=== PATIENT | female | born 1960 | race Caucasian/White ===

== ENCOUNTER 2019-11-10 15:40 | Outpatient (CLI) | payer BC, SELFPAY ==
--- NOTE | 2019-11-10 15:52 | XR_ITS ---
WS: [id number] CHEST 2 VIEWS HISTORY: Asthma. COMPARISON: 03/01/2018 Lungs: Hyperinflated lungs with no pneumonia. Normal vasculature. No pleural effusion or pneumothorax . Cardiac size: Normal. Mediastinum/Aorta: Normal mediastinum. Bones: Normal. XR/XR chest 2V* [id number] IMPRESSION: Mild chronic emphysema. No acute cardiopulmonary disease.
== END 2019-11-10 15:41 | disposition home or self-care (01) ==
LOC: RADWPI 15:50
PROVIDERS: Family Provider Internal Medicine; PCP Internal Medicine; Referring Provider Internal Medicine; Visit Provider Nurse Practitioner Family
DX: J45.998 Other asthma (principal); J43.9 Emphysema, unspecified
CPT/HCPCS: 71046

== ENCOUNTER → 2020-01-12 16:59 | Outpatient (BNVA) | payer BC, SELFPAY | PROVIDERS: Family Provider Internal Medicine; PCP Internal Medicine; Visit Provider Family Medicine | DX: R05 Cough (principal); R06.02 Shortness of breath; R06.2 Wheezing | CPT/HCPCS: 71046 ==

== ENCOUNTER 2020-01-19 12:34 | Outpatient (REF) | payer BC, SELFPAY | END 2020-01-19 12:35 | disposition home or self-care (01) | LOC: LAB 12:34 | PROVIDERS: Family Provider Internal Medicine; PCP Internal Medicine; Visit Provider Internal Medicine Critical Care Medicine | DX: Z76.89 Persons encountering health services in other specified circumstances (principal) ==

== ENCOUNTER 2020-01-19 12:38 | Outpatient (REF) | payer BC, SELFPAY ==
[2020-01-19 12:53] LABS: Basophils # 0.1 10^3/uL (0.0-0.1); Basophils % 0.7 %; Eosinophils # 0.6 10^3/uL (0.0-0.8); Eosinophils % 8.2 %; Hematocrit 43.8 % (37.0-47.0); Lymphocytes # 2.2 10^3/uL (0.8-4.8); Lymphocytes % 29.2 %; Mean Corpuscular Hemoglobin 28.2 pg (28.0-34.0); Mean Corpuscular Volume 88.1 fL (81-99); Mean Platelet Volume 11.3 fL (7.4-10.4); Monocytes # 0.5 10^3/uL (0.2-0.9); Monocytes % 6.4 %; Neutrophils # 4.1 10^3/uL (1.8-7.7); Neutrophils % 55.4 %; Nucleated Red Blood Cells % 0 %; Platelet Count 265 10^3/cmm (130-400); Red Blood Count 4.97 10^6/uL (4.1-5.3); Red Cell Distribution Width 13.6 % (12.1-15.1); White Blood Count 7.5 10^3/uL (4.0-10.0)
== END 2020-01-19 12:39 | disposition home or self-care (01) ==
LOC: LAB 12:38
PROVIDERS: Family Provider Internal Medicine; PCP Internal Medicine; Visit Provider Internal Medicine Critical Care Medicine
DX: J45.901 Unspecified asthma with (acute) exacerbation (principal)
CPT/HCPCS: 82785; 85025

== ENCOUNTER → 2020-06-28 08:32 | Outpatient (BNVA) | payer BC, SELFPAY | PROVIDERS: Family Provider Internal Medicine; PCP Internal Medicine; Referring Provider Internal Medicine; Visit Provider Anesthesiology Pain Medicine | DX: M25.572 Pain in left ankle and joints of left foot (principal); M25.571 Pain in right ankle and joints of right foot; M19.90 Unspecified osteoarthritis, unspecified site; M51.17 Intervertebral disc disorders with radiculopathy, lumbosacral region; Z79.891 Long term (current) use of opiate analgesic | CPT/HCPCS: 99204; 99213 ==

== ENCOUNTER 2021-01-22 10:27 | Emergency (ER) | payer BC, SELFPAY ==
[2021-01-22 10:53] VITALS: BP 148/91; PULSE 85; RESP 16; TEMP 36.8; O2SAT 93; BMI 38.0
[2021-01-22 11:05] VITALS: BP 140/80; PULSE 78; RESP 16; O2SAT 94
--- NOTE | 2021-01-22 11:22 | XRR_ITS ---
PROCEDURE INFORMATION: Exam: XR Right Knee Exam date and time: 01/22/2021 11:30 AM Age: 60 years old Clinical indication: Injury or trauma; Fall; Blunt trauma; Knee; Right; Additional info: Injury with pain TECHNIQUE: Imaging protocol: XR Right knee. Views: 3 views. COMPARISON: No relevant prior studies available. FINDINGS: Bones/joints: Small joint effusion, without acute bony injury. Soft tissues: No radiopaque foreign body. XR/XR knee RT 3V* [id number] IMPRESSION: Small joint effusion, without acute bony injury.
--- NOTE | 2021-01-22 11:22 | XRR_ITS ---
PROCEDURE INFORMATION: Exam: XR Right Shoulder Exam date and time: 01/22/2021 11:30 AM Age: 60 years old Clinical indication: Injury or trauma; Fall; Blunt trauma (contusions or hematomas); Shoulder; Right; Additional info: Fall injury with shoulder pain TECHNIQUE: Imaging protocol: XR Right shoulder. Views: 2 or more views. COMPARISON: No relevant prior studies available. FINDINGS: Bones/joints: Osteopenia and degenerative change. No acute bony injury or malalignment in the visualized right shoulder. Lungs: Interstitial prominence in the visualized right lung. Soft tissues: Calcific tendinitis. XR/XR shoulder RT min 2V* [id number] IMPRESSION: No acute bony injury or malalignment in the visualized right shoulder.
--- NOTE | 2021-01-22 11:22 | XRR_ITS ---
PROCEDURE INFORMATION: Exam: XR Thoracic Spine Exam date and time: 01/22/2021 11:30 AM Age: 60 years old Clinical indication: Injury or trauma; Fall; Blunt trauma (contusions or hematomas); Additional info: Fall with thoracic back pain TECHNIQUE: Imaging protocol: XR of the thoracic spine. Views: 3 views. COMPARISON: No relevant prior studies available. FINDINGS: Bones/joints: No acute bony injury or malalignment in the thoracic spine. Osteopenia and degenerative change. Soft tissues: Unremarkable. Intraperitoneal space: Surgical clips in the right upper quadrant. XR/XR thoracic spine 3V* [id number] IMPRESSION: No acute bony injury or malalignment in the thoracic spine.
--- NOTE | 2021-01-22 11:24 | ED_ITS ---
HPI - Fall General: Chief Complaint: Fall Stated Complaint: FALL Time Seen by Provider: 01/22/21 10:53 History of Present Illness: HPI Narrative: Patient is a 60-year-old female comes to the ED with fall. Fall occurred last night. Patient says she was walking up to her front door which is a 1 step. A bug flew in front of her and she swatted at the bug causing her to lose her balance she stepped back off the step and fell down. She denies hitting her head or any loss of consciousness. She has right knee pain that she rates a 10 out of 10 when she puts any weight on on it or flexes the knee. She is also complaining of having some thoracic back pain and right shoulder pain. Patient says she took a dose of her tramadol last night and it did not help at all with the pain. She has crutches at home she used to help her ambulate today. Associated symptoms-after fall: Denies abdominal pain, chest pain, headache(s), hematuria or neck pain Review of Systems Const: Denies: fever(s), chills or fatigue Eyes: Denies: change in vision or eye discomfort ENMT: Denies: throat pain, odynophagia, nasal discharge or nasal congestion Card: Denies: chest pain, palpitations, edema, swelling of feet/ankles, dyspnea on exertion or orthopnea Resp: Denies: dyspnea, productive cough or non-productive cough GI: Denies: abdominal pain, nausea, vomiting, diarrhea, constipation or hematochezia : Denies: flank pain, dysuria or hematuria Musc: Reports: back pain (Thoracic back pain) and extremity pain (Right knee pain and right shoulder pain.); Denies: neck pain or extremity swelling Skin/Breast: Denies: rash or new lesions Neuro: Denies: headache(s), numbness in extremities or weakness in extremities PFSH ED PFSH: Medical History Asthma Essential (primary) hypertension Hypothyroidism JUANITO (obstructive sleep apnea) Plantar fasciitis of right foot Surgical History H/O dilation and curettage H/O hemorrhoidectomy H/O tubal ligation History of cholecystectomy History of hysterectomy Family History Father Stroke Mother Hypertension Grandfather Hypertension Grandmother CHF (congestive heart failure) Stroke Diabetes Other Heart attack Social History Smoking and tobacco status: former smoker Quit status (tobacco): has quit using tobacco Year quit tobacco: 2012 - 0.5 PPD x 25 Years Alcohol intake: never Lives independently: Yes Household members: spouse Marital status: Current occupational status: disabled History of recent travel: No Current gender identity: Female Physical Exam Const: COMMON NORMALS: no acute distress, patient oriented x3, healthy appearing and alert GENERAL APPEARANCE: cooperative and comfortable HENMT: COMMON NORMALS: normocephalic HEAD & SCALP: normocephalic MOUTH: Normal oral and palatal mucosa present THROAT: posterior oropharynx normal and uvula midline Neck/C-Spine: COMMON NORMALS: supple GENERAL: Yes normal visual inspection Resp: COMMON NORMALS: normal respiratory effort, No retractions, No use of accessory muscles and clear to auscultation bilaterally AUSCULTATION: clear to auscultation bilaterally Cardio: COMMON NORMALS: regular rate, regular rhythm, S1 normal heart sound present, S2 normal heart sound present, No gallops present (Cardio), No clicks present (Cardio), No murmurs present (Cardio) and Peripheral pulses 2+ throughout RATE: regular rate RHYTHM: regular rhythm HEART SOUNDS: S1 normal heart sound present and S2 normal heart sound present PERIPHERAL PULSES: Peripheral pulses 2+ throughout GI: COMMON NORMALS: Normal to inspection, nondistended, normoactive bowel sounds present, Soft to palpation, non-tender and no masses PALPATION: Yes Soft to palpation : COMMON NORMALS: Yes no CVA tenderness BLADDER/KIDNEY EXAM: Yes no CVA tenderness Back/Pelvis: COMMON NORMALS: no CVA tenderness THORACIC SPINE/UPPER BACK: Yes thoracic ROM normal, Yes pain with ROM, No thoracic spinal tenderness and Yes paraspinal muscle tenderness Thoracic paraspinal muscle tenderness: left Extremity: GENERAL: Yes normal exam except as noted RIGHT UPPER EXTREMITY: Yes shoulder joint (Anterior aspect of right shoulder tender to palpation.) Right shoulder: Yes Right shoulder joint inspection exam (No visible deformity, ecchymosis or swelling.), Yes palpation, Yes Right shoulder joint ROM exam (Full range of motion) and Yes Right shoulder joint neurovascular exam (Intact) RIGHT LOWER EXTREMITY: Yes knee joint Right knee: Yes inspection (No visible ecchymosis or edema seen.), Yes palpation (Tenderness to the posterior aspect of knee.), Yes ROM (Limited flexion due to pain) and Yes neurovascular exam (Intact, pedal pulse 2+) Neuro: COMMON NORMALS: patient oriented x3 and moves all extremities SENSORIUM/ORIENTATION: Yes alert Skin: GENERAL SKIN EXAM: dry skin Course Vital Signs: Vital signs: Vital Signs Temperature 98.2 F 01/22/21 10:53 Pulse Rate 77 01/22/21 13:59 Respiratory Rate 18 01/22/21 13:59 Blood Pressure 142/79 01/22/21 13:59 Pulse Oximetry 94 01/22/21 13:59 MDM - Fall MDM Narrative: Medical decision making narrative: Patient is a 60-year-old female comes to the ED after having a fall. Her main complaint is right knee pain but she is also complained of having some mild right shoulder and thoracic back pain. Right knee exam shows shows no edema or ecchymosis seen. Patient has limited range of motion due to pain when performing flexion. Posterior knee tenderness. Right shoulder patient full range of motion and some mild tenderness to the anterior aspect of the shoulder. All extremities neurovascular tact. Patient had some muscular tenderness on the left side of thoracic back. X-ray of right knee, right shoulder and thoracic spine showed no acute fractures or findings. Patient's knee exam findings suggestive of may be a possible ligament tear. Patient was placed in a knee immobilizer and I placed a referral order to case management for patient to see Ortho. Patient diagnosed with right knee pain after injury, right shoulder pain and musculoskeletal back pain. She was discharged home with a written prescription for hydrocodone 5/325 mg tabs quantity 10 and methocarbamol. Patient told to use her crutches at home to help ambulate and wear knee immobilizer. Told patient that telehealth case manager will be contacting the next several days to set up an appoint with Ortho. Return to ED precautions given. Patient understood agree with plan. Imaging Data^: Xray Ortho: Attestation: I personally reviewed and interpreted this imaging study as follows: My impression: Right knee x-ray showed no acute fractures or findings. Right shoulder x-ray showed no acute fractures or findings. Thoracic spine x-ray showed no acute fracture seen. Pending final radiology report. Discharge Plan Discharge Patient Disposition: Home Clinical Impression: Pain of right knee after injury, Musculoskeletal back pain Pain in right shoulder Qualifiers: Chronicity: acute Qualified Code(s): M25.511 - Pain in right shoulder Condition: Stable Prescriptions: New methocarbamol 750 mg tablet 750 mg PO Q8H Qty: 20 RF: 0 No Action albuterol sulfate [Ventolin HFA] 90 mcg/actuation HFA aerosol inhaler 1 puff INHALATION Q4H PRNRF: 0 albuterol sulfate 2.5 mg /3 mL (0.083 %) solution for nebulization 2.5 mg INHALATION Q4H PRNRF: 0 ipratropium bromide 0.02 % solution 2.5 ml INHALATION Q6H PRN (Reason: shortness of breath or wheezing) Qty: 62.5 RF: 0 methylprednisolone acetate [Depo-Medrol] 80 mg/mL suspension 80 mg Tendon Sheath Inj. ONCE Qty: 1 RF: 0 bupivacaine (PF) 0.25 % (2.5 mg/mL) solution 2.5 mg Tendon Sheath Inj. ONCE Qty: 1 RF: 0 tramadol 100 mg tablet 100 mg PO TID PRN (Reason: pain) Qty: 90 RF: 5 duloxetine 30 mg capsule,delayed release(DR/EC) 30 mg PO DAILY Qty: 90 RF: 3 gabapentin 100 mg capsule 100 mg PO BID Qty: 60 RF: 0 levofloxacin 500 mg tablet 500 mg PO Q24H 7 Days Qty: 7 RF: 0 prednisone 20 mg tablet 40 mg PO DAILY 5 Days Qty: 10 RF: 0 diclofenac sodium [Voltaren Arthritis Pain] 1 % gel 2 g topical QID Qty: 100 RF: 0 citalopram 20 mg tablet 20 mg PO QDAY Qty: 90 RF: 3 montelukast [Singulair] 10 mg tablet 10 mg PO QDAY Qty: 30 RF: 5 Breo Ellipta 200-25 mcg/dose blister with device 1 inh INHALATION DAILY Qty: 60 RF: 3 levothyroxine 100 mcg capsule 100 mcg PO QDAY Qty: 90 RF: 0 losartan-hydrochlorothiazide 50-12.5 mg tablet 1.5 tab PO QDAY Qty: 90 RF: 3 Discharge Orders: Discharge ED (Routine); Ordered 01/22/21 Ordered By: Jeremiah Duke Referrals: Saurav Nevarez MD [Primary Care Provider] - Discharge Diet: Regular Discharge Activity: Use walker/crutches as instructed Patient Instructions: Knee Sprain (ED), Musculoskeletal Pain (ED), Knee Pain (ED), Opioid Safety Activity Restrictions/Additional Instructions: Follow-up with medical provider as directed. Case management will be contacting you in the next several days to set up an appoint with orthopedic doctor. Take medications as prescribed. Methocarbamol is a muscle relaxer and can cause some drowsiness so take at night before bed. Rest and apply cold pack on painful areas to help with symptoms. Wear knee immobilizer and use crutches to ambulate. Return to the ER or your medical provider if condition worsens. Please read and understand discharge instructions. If any questions, please ask. Coding Level of Care Code ED [employer] for Natty Fwd Exam Comprehensive
[2021-01-22] MEDS: HYDROcodone-acetaminophen 7.5-325 mg Tablet 1 TAB PO (11:33)
[2021-01-22 13:59] VITALS: BP 142/79; PULSE 77; RESP 18; O2SAT 94
--- NOTE | 2021-01-24 12:15 | DCPLANNER ---
enterprise architect manager had message to schedule a follow up appointment for patient with ortho. enterprise architect manager called the ortho clinic, spoke with Madhuri, gave clinic patients information. enterprise architect manager was told that patients information would be printed and reviewed. Clinic will call patient with appointment information.
--- NOTE | 2021-01-28 14:37 | DCPLANNER ---
Patient had a follow up appointment scheduled for 01.26.21 with ortho - patient did attend appointment.
== END 2021-01-22 14:00 | disposition home or self-care (01) ==
PROVIDERS: Emergency Provider Physician Assistant; PCP Internal Medicine
DX: S89.91XA Unspecified injury of right lower leg, initial encounter (principal); M54.9 Dorsalgia, unspecified; M25.511 Pain in right shoulder; W10.8XXA Fall (on) (from) other stairs and steps, initial encounter; I10 Essential (primary) hypertension; Z87.891 Personal history of nicotine dependence
CPT/HCPCS: 29530; 72072; 73030; 73562; 99283

== ENCOUNTER → 2021-03-16 08:42 | Outpatient (BNVA) | payer BC, SELFPAY | PROVIDERS: PCP Internal Medicine; Visit Provider Internal Medicine | DX: E03.9 Hypothyroidism, unspecified (principal); J45.51 Severe persistent asthma with (acute) exacerbation; J45.901 Unspecified asthma with (acute) exacerbation | CPT/HCPCS: 80061; 82306; 84443 ==

== ENCOUNTER → 2021-09-08 13:17 | Outpatient (BNVA) | payer BC, SELFPAY | PROVIDERS: PCP Internal Medicine; Visit Provider Nurse Practitioner Family | DX: Z20.822 Contact with and (suspected) exposure to COVID-19 (principal); Z20.828 Contact with and (suspected) exposure to other viral communicable diseases | CPT/HCPCS: 87635 ==

== ENCOUNTER 2021-09-17 11:55 | Emergency (ER) | payer BC, SELFPAY ==
[2021-09-17 12:08] VITALS: BP 129/89; PULSE 82; RESP 18; TEMP 36.6; O2SAT 92; BMI 37.2
--- NOTE | 2021-09-17 12:22 | XRR_ITS ---
PROCEDURE INFORMATION: Exam: XR Chest Exam date and time: 09/17/2021 12:22 PM Age: 60 years old Clinical indication: Dyspnea TECHNIQUE: Imaging protocol: XR of the chest. Views: 1 view. COMPARISON: CR XR chest 2V* [id number] 01/12/2020 5:11 PM FINDINGS: Lungs: There is a patchy infiltrate in the left base which may represent a pneumonia in the lingula. The right lung is grossly clear. Pleural spaces: Unremarkable. No pleural effusion. No pneumothorax. Heart/Mediastinum: Unremarkable. No cardiomegaly. Bones/joints: Unremarkable. XR/XR chest 1V portable [id number] IMPRESSION: Patchy infiltrate projecting in the lingula which may represent a pneumonia. Radiation Dose CTDIVOL = (mGy): DLP = (mGy-cm)
--- NOTE | 2021-09-17 12:32 | ED_ITS ---
Documented by User: JCARLOS Rick 09/17/21 16:49 HPI - COVID General: Chief Complaint: Shortness of Breath/Dyspnea Stated Complaint: SOB COUGH CONGESTION SON IS COVID + Time Seen by Provider: 09/17/21 12:23 Triage information: No fever, cough or shortness of breath . No known COVID + exposure last 14 days History of Present Illness: HPI Narrative: Patient's had exposure to 2 people in her home that are positive for Covid. Patient says that she is starting cough denies any fever chills headache sore throat body aches. She has a history of asthma. She would like to have a steroid if at all possible. Has chronic shortness of breath with her asthma. MD complaint: reported COVID exposure Prior covid testing: yes, results known Prior testing date: 09/13/21 COVID 19 common symptoms: positive non-productive cough and dyspnea; negative fever(s), chills, body aches, headache(s), throat pain, nasal congestion, nausea or vomiting COVID 19 other sytmptoms: negative chest pain Onset (ago): day(s) Severity: mild Pertinent comorbid conditions: hypertension and COPD/respiratory disease Treatment prior to arrival: breathing treatments COVID Results: Nasal/Oral Coronavirus 2019 PCR Not detected 09/08/21 13:17 09/08/21 Review of Systems Const: Denies: fever(s), chills or body aches Eyes: Denies: change in vision or blurry vision ENMT: Denies: throat pain or nasal congestion Card: Denies: chest pain or dyspnea on exertion Resp: Reports: dyspnea and non-productive cough GI: Denies: abdominal pain, nausea or vomiting Musc: Denies: extremity pain Skin/Breast: Denies: rash Neuro: Denies: headache(s) Psych: Denies: anxiety or depression Prashant/Lymph: Denies: easy bruising PFSH ED PFSH: Medical History (Updated 09/17/21 @ 12:27 by JCARLOS Rick) Asthma Essential (primary) hypertension Hypothyroidism JUANITO (obstructive sleep apnea) Plantar fasciitis of right foot Surgical History H/O dilation and curettage H/O hemorrhoidectomy H/O tubal ligation History of cholecystectomy History of hysterectomy Family History Father Stroke Mother Hypertension Grandfather Hypertension Grandmother CHF (congestive heart failure) Stroke Diabetes Other Heart attack Social History Smoking and tobacco status: former smoker Quit status (tobacco): has quit using tobacco Year quit tobacco: 2012 - 0.5 PPD x 25 Years Alcohol intake: never Lives independently: Yes Household members: spouse Marital status: Current occupational status: disabled History of recent travel: No Current gender identity: Female Physical Exam Const: COMMON NORMALS: no acute distress, average body habitus and patient oriented x3 HENMT: COMMON NORMALS: normocephalic HEAD & SCALP: normal to inspection and normocephalic FACE & SINUS: normal facial exam Eye: COMMON NORMALS: conjunctivae normal GENERAL EYE: appearance normal, both eyes and all related structures CONJUNCTIVA: Yes conjunctivae normal Neck/C-Spine: COMMON NORMALS: no JVD Chest: COMMONS NORMALS: normal inspection of the chest Resp: COMMON NORMALS: normal respiratory effort AUSCULTATION: rhonchi upper bilaterally Cardio: COMMON NORMALS: no JVD, regular rate and regular rhythm RATE: regular rate RHYTHM: regular rhythm GI: COMMON NORMALS: Normal to inspection, nondistended, normoactive bowel s ounds present Extremity: COMMON NORMALS: normal to inspection and full ROM Neuro: COMMON NORMALS: patient oriented x3 Course Vital Signs: Vital signs: Vital Signs Temperature 98 F 09/17/21 12:08 Pulse Rate 82 09/17/21 12:08 Respiratory Rate 18 09/17/21 12:08 Blood Pressure 129/89 09/17/21 12:08 Pulse Oximetry 92 09/17/21 12:08 MDM - COVID MDM Narrative: Medical decision making narrative: Patient presents desiring steroids. Patient has a grandson and who are at home that tested positive for Covid this past week. Patient herself has been tested last week and this week. Patient is tested negative. Patient denies any Covid symptoms. X-ray was performed shows patchy infiltrate projecting to the lingula which may represent a pneumonia. X-ray compared to previous looks very similar. She does have chronic shortness of breath from her asthma and she does use nebulizer on a regular basis. Patient states she is symptom-free would just like to have some medication make sure that she is okay. Patient strongly encouraged follow-up primary care provider return here if worsening symptoms. COVID Results: Nasal/Oral Coronavirus 2019 PCR Not detected 09/08/21 13:17 09/08/21 Discharge Plan Discharge Patient Disposition: Home Clinical Impression: Close exposure to 2019 novel coronavirus Condition: Stable Prescriptions: New Decadron 6 mg tablet 6 mg PO DAILY Qty: 7 RF: 0 Cipro 500 mg tablet 500 mg PO BID Qty: 14 RF: 0 No Action ipratropium-albuterol 0.5 mg-3 mg(2.5 mg base)/3 mL solution for nebulization 3 ml inhalation QID PRN (Reason: wheezing) 30 Days Qty: 360 RF: 3 prednisone 20 mg tablet See Rx Instructions PO DAILY 6 Days Qty: 19 RF: 0 ciprofloxacin HCl [Cipro] 500 mg tablet 500 mg PO Q12H 7 Days Qty: 14 RF: 0 albuterol sulfate [Ventolin HFA] 90 mcg/actuation HFA aerosol inhaler 1 puff INHALATION Q4H PRN (Reason: shortness of breath or wheezing) Qty: 6.7 RF: 0 diclofenac sodium [Voltaren Arthritis Pain] 1 % gel 2 g topical QID Qty: 100 RF: 0 montelukast [Singulair] 10 mg tablet 10 mg PO DAILY 90 Days Qty: 90 RF: 0 Trelegy Ellipta 200-62.5-25 mcg blister with device 1 inh inhalation DAILY 30 Days Qty: 60 RF: 2 citalopram 20 mg tablet 20 mg PO QDAY Qty: 90 RF: 3 tramadol 100 mg tablet 100 mg PO TID PRN (Reason: pain) Qty: 90 RF: 5 gabapentin 100 mg capsule 100 mg PO BID Qty: 60 RF: 0 losartan-hydrochlorothiazide 50-12.5 mg tablet 1.5 tab PO QDAY Qty: 90 RF: 3 levothyroxine 100 mcg capsule 100 mcg PO QDAY Qty: 30 RF: 3 benzonatate [Tessalon Perles] 100 mg capsule 100 mg PO BID PRN (Reason: cough) Qty: 20 RF: 0 Discharge Orders: Discharge ED (Routine); Ordered 09/17/21 Ordered By: Mikal Calderon Referrals: Saurav Nevarez MD [Primary Care Provider] - Discharge Diet: Usual diet Discharge Activity: Resume usual activity Patient Instructions: COVID-19: Slow the Coronavirus Spread (ED) Activity Restrictions/Additional Instructions: Follow-up with medical provider as directed. Take medications as prescribed. Return to the ER or your medical provider if condition worsens. Please read and understand discharge instructions. If any questions ask please. Coding Level of Care Code ED [employer]g Fwd Exam Comprehensive Documented by User: Tam Smart MD 09/20/21 11:09 HPI - COVID General: Chief Complaint: Shortness of Breath/Dyspnea Stated Complaint: SOB COUGH CONGESTION SON IS COVID + Time Seen by Provider: 09/17/21 12:23 COVID Results: Nasal/Oral Coronavirus 2019 PCR Not detected 09/08/21 13:17 09/08/21 [facility], [facility] ED PFSH: Medical History (Updated 09/17/21 @ 12:27 by JCARLOS Rick) Asthma Essential (primary) hypertension Hypothyroidism JUANITO (obstructive sleep apnea) Plantar fasciitis of right foot Surgical History H/O dilation and curettage H/O hemorrhoidectomy H/O tubal ligation History of cholecystectomy History of hysterectomy Family History Father Stroke Mother Hypertension Grandfather Hypertension Grandmother CHF (congestive heart failure) Stroke Diabetes Other Heart attack Social History Smoking and tobacco status: former smoker Quit status (tobacco): has quit using tobacco Year quit tobacco: 2012 - 0.5 PPD x 25 Years Alcohol intake: never Lives independently: Yes Household members: spouse Marital status: Current occupational status: disabled History of recent travel: No Current gender identity: Female Course Vital Signs: Vital signs: Vital Signs Temperature 98 F 09/17/21 12:08 Pulse Rate 82 09/17/21 12:08 Respiratory Rate 18 09/17/21 12:08 Blood Pressure 129/89 09/17/21 12:08 Pulse Oximetry 92 09/17/21 12:08 MDM - COVID COVID Results: Nasal/Oral Coronavirus 2019 PCR Not detected 09/08/21 13:17 09/08/21 Discharge Plan Discharge Patient Disposition: Home Clinical Impression: Close exposure to 2019 novel coronavirus Condition: Stable Prescriptions: New Decadron 6 mg tablet 6 mg PO DAILY Qty: 7 RF: 0 Cipro 500 mg tablet 500 mg PO BID Qty: 14 RF: 0 No Action ipratropium-albuterol 0.5 mg-3 mg(2.5 mg base)/3 mL solution for nebulization 3 ml inhalation QID PRN (Reason: wheezing) 30 Days Qty: 360 RF: 3 prednisone 20 mg tablet See Rx Instructions PO DAILY 6 Days Qty: 19 RF: 0 ciprofloxacin HCl [Cipro] 500 mg tablet 500 mg PO Q12H 7 Days Qty: 14 RF: 0 albuterol sulfate [Ventolin HFA] 90 mcg/actuation HFA aerosol inhaler 1 puff INHALATION Q4H PRN (Reason: shortness of breath or wheezing) Qty: 6.7 RF: 0 diclofenac sodium [Voltaren Arthritis Pain] 1 % gel 2 g topical QID Qty: 100 RF: 0 montelukast [Singulair] 10 mg tablet 10 mg PO DAILY 90 Days Qty: 90 RF: 0 Trelegy Ellipta 200-62.5-25 mcg blister with device 1 inh inhalation DAILY 30 Days Qty: 60 RF: 2 citalopram 20 mg tablet 20 mg PO QDAY Qty: 90 RF: 3 tramadol 100 mg tablet 100 mg PO TID PRN (Reason: pain) Qty: 90 RF: 5 gabapentin 100 mg capsule 100 mg PO BID Qty: 60 RF: 0 losartan-hydrochlorothiazide 50-12.5 mg tablet 1.5 tab PO QDAY Qty: 90 RF: 3 levothyroxine 100 mcg capsule 100 mcg PO QDAY Qty: 30 RF: 3 benzonatate [Tessalon Perles] 100 mg capsule 100 mg PO BID PRN (Reason: cough) Qty: 20 RF: 0 Discharge Orders: Discharge ED (Routine); Ordered 09/17/21 Ordered By: Mikal Calderon Referrals: Saurav Nevarez MD [Primary Care Provider] - Discharge Diet: Usual diet Discharge Activity: Resume usual activity Patient Instructions: COVID-19: Slow the Coronavirus Spread (ED) Activity Restrictions/Additional Instructions: Follow-up with medical provider as directed. Take medications as prescribed. Return to the ER or your medical provider if condition worsens. Please read and understand discharge instructions. If any questions ask please. Coding Level of Care Code ED Predatory Hunter for Natty Fwd Exam Comprehensive
== END 2021-09-17 12:46 | disposition home or self-care (01) ==
PROVIDERS: Emergency Provider Nurse Practitioner Family; PCP Internal Medicine
DX: Z20.822 Contact with and (suspected) exposure to COVID-19 (principal); I10 Essential (primary) hypertension; J45.909 Unspecified asthma, uncomplicated; Z87.891 Personal history of nicotine dependence
CPT/HCPCS: 71045; 99282

== ENCOUNTER → 2022-02-06 16:06 | Outpatient (BNVA) | payer BC, SELFPAY | PROVIDERS: PCP Internal Medicine; Visit Provider Internal Medicine | DX: R53.83 Other fatigue (principal); J45.909 Unspecified asthma, uncomplicated; R09.82 Postnasal drip; E03.9 Hypothyroidism, unspecified | CPT/HCPCS: 80053; 82607; 82746; 83550; 84443; 85025 ==

== ENCOUNTER → 2022-07-17 11:45 | Outpatient (BNVA) | payer BC, SELFPAY | PROVIDERS: PCP Internal Medicine; Visit Provider Registered Nurse Neonatal Intensive Care | DX: Z20.822 Contact with and (suspected) exposure to COVID-19 (principal); R50.9 Fever, unspecified | CPT/HCPCS: 87400; 87426 ==

== ENCOUNTER → 2022-11-01 09:09 | Outpatient (BNVA) | payer BC, SELFPAY | PROVIDERS: PCP Internal Medicine; Visit Provider Nurse Practitioner Family | DX: M25.569 Pain in unspecified knee (principal) | CPT/HCPCS: 73560; 73565 ==

== ENCOUNTER → 2023-01-18 12:06 | Outpatient (BNVA) | payer BC, SELFPAY | PROVIDERS: PCP Family Medicine; Visit Provider Family Medicine | DX: J45.51 Severe persistent asthma with (acute) exacerbation (principal); Z68.41 Body mass index [BMI] 40.0-44.9, adult; I10 Essential (primary) hypertension | CPT/HCPCS: 80053; 80061; 84439; 84443; 85025 ==

== ENCOUNTER 2023-01-25 11:26 | Outpatient (CLI) | payer BC, SELFPAY ==
--- NOTE | 2023-01-25 11:33 | MM_ITS ---
WS: [id number] VIEWS: MLO and CC views both breasts. 3D digital tomosynthesis is also included in this exam. Comparison made with prior exam of 07/08/2009, 03/26/2015.. Findings: 1.5 cm partially obscured nodular density noted in the lateral left breast at about mid depth level. This is at the approximate 3:00 position. This lesion contains both course and new pleomorphic microc alcifications. No new finding in the right breast. There are stable appearing nodular densities in darío th breasts. Magnification compression spot images and regional ultrasound of the lateral left breast as well as a 90 degrees lateral view of the left breast would be recommended for further workup.Scatt ered fibroglandular densities in both breasts. MM/[place] [id number] Impression: BI-RADS: 0-Incomplete: Need additional imaging evaluation FOLLOW-UP: See Report This mammogram was also analyzed by the Computer Aided Detection System R2 Imag e Layout Man.
== END 2023-01-25 11:27 | disposition home or self-care (01) ==
LOC: RAD 11:28
PROVIDERS: PCP Family Medicine; Visit Provider Family Medicine
DX: Z12.31 Encounter for screening mammogram for malignant neoplasm of breast (principal)
CPT/HCPCS: 77063; 77067

== ENCOUNTER 2023-03-14 09:19 | Outpatient (CLI) | payer BC, SELFPAY ==
--- NOTE | 2023-03-14 09:30 | MM_ITS ---
WS: [id number] Left breast diagnostic 3D tomosynthesis digital mammogram, 03/14/2023 Clinical Data: N63.20 - Unspecified lump in the left breast, unspecified... Comparison: 01/25/2023, 03/22/2015, 9 08/17/2009. Findings: Magnification films in the CC and MLO projection were obtained. An additional medial lateral film was obtained. At the 3:00 position in the left breast there is an irregular mass with greatest dimension of 2.0 cm with associated pleomorphic calcifications. The border is ill-defined. No other lesions are seen. The re is a mole marker on the left breast. There are lymph nodes in the left axilla MM/[place] [id number] Impression: 1. Irregular 2 cm mass in lateral aspect of the left breast at the 3:00 positio n with associated pleomorphic calcifications. 2. Left breast ultrasound. BIRADS: 4-Suspicious Finding-Biopsy Should Be Considered FOLLOW UP: See Report The CAD checker loader was used.
--- NOTE | 2023-03-14 09:31 | US_ITS ---
WS: [id number] Left breast ultrasound, 03/14/2023 Clinical Data: ABNORMAL MAMMO Comparison: Mammogram, 03/14/2023 Findings: At the 3:00 position 2 cm from the nipple there is an irregular lesion. The borders are poorly define d. There are internal echoes and calcifications. The lesion measures 0.66 x 1.34 x 1.40 cm. US/US breast LT limited* [id number] Impression: 1. Irregular lesion at the 3:00 position in the left breast 2 cm from the nippl e. 2. Recommend left breast biopsy. BIRADS: 4-Suspicious Finding-Biopsy Should Be Considered FOLLOW UP: See Report
== END 2023-03-14 09:20 | disposition home or self-care (01) ==
LOC: RAD 09:22
PROVIDERS: PCP Family Medicine; Visit Provider Family Medicine
DX: N63.25 Unspecified lump in the left breast, overlapping quadrants (principal)
CPT/HCPCS: 76642; 77061; G0279

== ENCOUNTER 2023-03-21 11:02 | Outpatient (CLI) | payer BC, SELFPAY ==
--- NOTE | 2023-03-21 11:45 | US_ITS ---
WS: [id number] ULTRASOUND-GUIDED LEFT BREAST BIOPSY HISTORY: Left breast mass COMPARISON: 03/14/2023 and 01/25/2023 Procedure, risks and complications are explained to the patient. Medications are reviewed. Consent is obtained. The mass in the LEFT breast is localized with ultrasound. Mass localizes to 3:00, 2 cm from the nippl e. Skin is cleansed with ChloraPrep and anesthetized with 1% buffered lidocaine. Small dermatome is m paolo. Under sterile conditions mass is biopsied with a 14-gauge Achieve needle. Multiple core biopsies are performed. Material placed in formalin and sent to pathology for review. No complications encoun tered. Breast tissue marker (Bard ultrasound enhanced ribbon): Single. Patient left the radiology suite with no complications. Patient is instructed to return [place] [facility] [place] [facility] with any concerns. US/[place] [id number] IMPRESSION: 1. Uncomplicated core needle biopsy LEFT breast mass at 3:00. PATHOLOGY: Invasive ductal carcinoma, moderately differentiated. Microcalcifica tions identified within the DCIS and invasive carcinoma. Breast profile is pend ing and will be reported separately. RECOMMENDATION: Follow-up with oncology and breast surgery.
[2023-03-27 14:11] LABS: Breast Profile ER,PR,HER2,Ki-6 See Report
== END 2023-03-21 11:03 | disposition home or self-care (01) ==
PROVIDERS: PCP Family Medicine; Visit Provider Family Medicine
DX: C50.812 Malignant neoplasm of overlapping sites of left female breast (principal)
CPT/HCPCS: 19083; 88305; 88361; 88374

== ENCOUNTER 2023-03-29 14:50 | Oncology outpatient (recurring) (ONCR) | payer BC, SELFPAY | END 2023-04-27 23:59 | disposition home or self-care (01) | LOC: ONCMED 14:53 | PROVIDERS: PCP Family Medicine; Visit Provider Internal Medicine Medical Oncology | DX: Z53.9 Procedure and treatment not carried out, unspecified reason (principal) ==

== ENCOUNTER 2023-06-27 12:51 | Oncology outpatient (recurring) (ONCR) | payer BC, SELFPAY ==
[2023-06-20 10:34] VITALS: BP 148/96; PULSE 85; RESP 18; TEMP 36.6; O2SAT 95
== END 2023-06-28 23:59 | disposition home or self-care (01) ==
PROVIDERS: PCP Family Medicine; Visit Provider Internal Medicine Medical Oncology
DX: Z53.9 Procedure and treatment not carried out, unspecified reason (principal)
CPT/HCPCS: 36415

== ENCOUNTER 2023-07-16 13:58 | Oncology outpatient (recurring) (ONCR) | payer BC, SELFPAY ==
[2023-07-16 14:07] VITALS: BP 128/86; PULSE 93; RESP 16; TEMP 36.8; O2SAT 96
[2023-07-16 14:22] LABS: Basophils % 0.3 %; Eosinophils # 0.6 10^3/uL (0.0-0.8); Eosinophils % 6.9 %; Hematocrit 44.9 % (36-47); Lymphocytes # 2.5 10^3/uL (0.8-4.8); Lymphocytes % 27.6 %; Mean Corpuscular HGB Conc 31.4 g/dL (30-55); Mean Corpuscular Hemoglobin 27.1 pg (27-33); Mean Corpuscular Volume 86.2 fl (85-98); Mean Platelet Volume 10.4 fL (7.4-10.4); Monocytes # 0.5 10^3/uL (0.2-0.9); Monocytes % 6.1 %; Neutrophils # 5.23 10^3/uL (1.8-7.7); Neutrophils % 58.8 %; Nucleated Red Blood Cells % 0 %; Platelet Count 282 10^3/cmm (157-399); Red Blood Count 5.21 10^6/uL (3.85-5.65); Red Cell Distribution Width 13.5 % (12.1-15.1)
--- NOTE | 2023-07-16 14:28 | XR_ITS ---
WS: [id number] DEXA (DUAL ENERGY X-RAY ABSORPTIOMETRY) Bone mineral density was performed using a [employer] machine. HISTORY: BREAST CA/AI USE COMPARISON: None available. Lumbar spine BMD (L1-L4): 0.9 T score: -2.5 Z score: -2.1 Total hip BMD: Left: 0.8. T score: -1.4 Z score: -1.1 Right: 0.8. T score: -1.5 Z score: 0.1 10 year probability of a major osteoporotic fracture is 48.2%. IMPRESSION: OSTEOPOROSIS based upon the WHO classification for females.
[2023-07-16 14:40] LABS: Alanine Aminotransferase 22 U/L (0-33); Albumin Level 3.7 g/dL (3.5-5.2); Alkaline Phosphatase 51 U/L (35-105); Anion Gap 10.2 (5-19); Aspartate Amino Transferase 17 U/L (0-32); Blood Urea Nitrogen 10 mg/dL (8-23); Calcium 9.3 mg/dL (8.5-10.5); Carbon Dioxide 32 mmol/L (22-29); Chloride 99 mmol/L (98-107); Globulin 3.6 g/dL (1.3-4.6); Glomerular Filtration Rate 124.6 mL/min (90-130); Glucose 121 mg/dL (65-115); Osmolality Calculated 286 mOsm/kg (285-295); Potassium 3.2 mmol/L (3.5-5.1); Sodium 138 mmol/L (136-145); Total Bilirubin 0.4 mg/dL (0.15-1.2); Total Protein 7.3 g/dL (6.6-8.7)
[2023-07-16 14:56] LABS: 25 Hydroxy Vitamin D 73 ng/mL (30-100)
== END 2023-07-28 23:59 | disposition home or self-care (01) ==
PROVIDERS: Internal Medicine Medical Oncology; PCP Family Medicine; Visit Provider Internal Medicine Medical Oncology
DX: C50.812 Malignant neoplasm of overlapping sites of left female breast (principal); Z79.811 Long term (current) use of aromatase inhibitors; Z78.0 Asymptomatic menopausal state
CPT/HCPCS: 36415; 77080; 80053; 82306; 85025

== ENCOUNTER → 2023-10-12 11:59 | Outpatient (BNVA) | payer BC, SELFPAY | PROVIDERS: PCP Family Medicine; Referring Provider Internal Medicine Medical Oncology; Visit Provider Internal Medicine | DX: E03.9 Hypothyroidism, unspecified (principal); R53.83 Other fatigue; E04.9 Nontoxic goiter, unspecified; E66.9 Obesity, unspecified; R63.5 Abnormal weight gain | CPT/HCPCS: 36415; 84305; 84439; 84443; 86376; 86800 ==

== ENCOUNTER 2023-10-19 14:19 | Outpatient (CLI) | payer BC, SELFPAY ==
--- NOTE | 2023-10-19 14:30 | US_ITS ---
WS: [id number] THYROID ULTRASOUND HISTORY: nodules COMPARISON: None available. Right lobe: 1.3 cm x 1.3 cm x 4.4 cm (w x ap x l). Volume: 3.8 cm3. Small echogenic thyroid. There are no discrete nodules. The entire thyroid lobe is echogenic. No incr eased vascularity. Left lobe: 1.3 cm x 1.1 cm x 2.6 cm (w x ap x l). Volume: 1.9 cm3. Small echogenic thyroid. No discrete nodules. The entire lobe is echogenic and small caliber. No nodu les. Isthmus: 0.3 cm. IMPRESSION: Atrophied, echogenic thyroid. No mass.
== END 2023-10-19 14:20 | disposition home or self-care (01) ==
LOC: RAD 14:19
PROVIDERS: PCP Family Medicine; Visit Provider Internal Medicine
DX: E03.9 Hypothyroidism, unspecified (principal); E04.9 Nontoxic goiter, unspecified
CPT/HCPCS: 76536

== ENCOUNTER 2023-10-31 16:50 | Outpatient (CLI) | payer BC, SELFPAY ==
[2023-10-31 18:28] LABS: Urine Creatinine 67 mg/dL (28-217)
[2023-10-31 19:17] LABS: Total Volume Urine 2200 ml
[2023-11-06 16:44] LABS: Free Cortisol Urine 27.2 mcg/24 h (4.0-50.0); Total Urine 2200 mL; Urine Creatinine 1.49 g/24 h (0.50-2.15)
== END 2023-10-31 16:51 | disposition home or self-care (01) ==
PROVIDERS: PCP Family Medicine; Visit Provider Internal Medicine
DX: E03.9 Hypothyroidism, unspecified (principal); R53.83 Other fatigue
CPT/HCPCS: 82530; 82570

== ENCOUNTER → 2023-12-17 09:39 | Outpatient (BNVA) | payer BC, SELFPAY | PROVIDERS: PCP Family Medicine; Visit Provider Internal Medicine | DX: E03.9 Hypothyroidism, unspecified | CPT/HCPCS: 36415; 84439; 84443 ==

== ENCOUNTER 2024-02-25 12:42 | Outpatient (CLI) | payer BC, SELFPAY ==
[2024-02-25 13:58] LABS: Thyroid Stimulating Hormone 0.88 uIU/mL (0.27-4.20)
[2024-02-25 14:40] LABS: Free T4 Free Thyroxine 1.24 ng/dL (0.82-1.77)
== END 2024-02-25 12:43 | disposition home or self-care (01) ==
LOC: LAB 12:45
PROVIDERS: PCP Family Medicine; Visit Provider Internal Medicine
DX: E03.9 Hypothyroidism, unspecified (principal)
CPT/HCPCS: 36415; 84439; 84443

== ENCOUNTER 2024-05-23 10:10 | Outpatient (CLI) | payer BC, SELFPAY ==
[2024-05-23 11:00] LABS: Free T4 Free Thyroxine 1.33 ng/dL (0.82-1.77); Thyroid Stimulating Hormone 1.55 uIU/mL (0.27-4.20)
== END 2024-05-23 10:11 | disposition home or self-care (01) ==
LOC: LAB 10:11
PROVIDERS: PCP Family Medicine; Visit Provider Internal Medicine
DX: E03.9 Hypothyroidism, unspecified (principal); E03.8 Other specified hypothyroidism; E06.3 Autoimmune thyroiditis
CPT/HCPCS: 36415; 84439; 84443

== ENCOUNTER 2024-09-04 09:02 | Emergency (ER) | payer BC, SELFPAY ==
[2024-09-04 09:16] VITALS: BP 129/86; PULSE 86; TEMP 36.8; O2SAT 94; BMI 35.4
--- NOTE | 2024-09-04 09:34 | XR_ITS ---
WS: [id number] XR shoulder RT min 2V* [id number] REASON FOR EXAM: pain FINDINGS: No fracture or focal bone lesion. Moderate narrowing of the acromioclavicular joint with significant marginal osteophytosis. Moderate downward slant of the acromial process. The glenohumeral joint space is not clearly demonstrated in this examination but likely somewhat narr owed. There is mild subchondral sclerosis of the acetabulum There is mild sclerosis and cystic change in the greater tuberosity of the humerus. There appears to be some narrowing of the humeral acromial interval. There is been previous left axillary lymph node dissection. There is no evidence of bony metastatic d isease. XR/XR shoulder RT min 2V* [id number] IMPRESSION: Moderate to significant osteoarthritis of the acromioclavicular joint. Presumed mild osteoarthritis of the glenohumeral joint. Additional findings above suggest the possibility of significant rotator cuff t endinosis.
--- NOTE | 2024-09-04 09:54 | PC.PHAR ---
pt states takes thyroid medication in early am and takes all other am meds at mid morning around 11 am.
--- NOTE | 2024-09-04 10:08 | W.ED.EXTPRO ---
HPI - Extremity Problem General: Chief complaint: Extremity Problem,Nontraumatic Stated complaint: L shoulder Pain Time Seen by Provider: 09/04/24 09:30 History of Present Illness: 63-year-old female presents emergency room with complaint of left shoulder pain has been going on for the last several days. She had extended her arm to manipulate a large plug and on the washer took a lot of pressure she strained the shoulder in the course of this that is what seemed to have precipitated her symptoms she has been to her primary care doctor they gave her prescription for muscle relaxer steroid she also got an injection for pain I suspect it may have been ketorolac she said it did help for about 3 hours. Today she is cradling her arm splinting against her chest unable to AB duct or extend due to pain. In the past she had a similar episode and required a steroid injection with orthopedics. She has no chest pain no shortness of breath no direct blow or trauma no previous surgery to that shoulder Associated symptoms: Deny chest pain, fever(s) or rash Related Data Home Medications Medication Instructions Recorded Confirmed celecoxib 200 mg capsule (Celebrex) 200 mg PO BID PRN Pain 03/29/23 09/04/24 alprazolam 0.25 mg tablet (Xanax) 0.25 mg PO BEDTIME 09/04/24 09/04/24 citalopram 20 mg tablet 20 mg PO DAILY 09/04/24 09/04/24 gabapentin 100 mg capsule 100 mg PO BEDTIME pain 09/04/24 09/04/24 levothyroxine 100 mcg tablet 100 mcg PO QAM 09/04/24 09/04/24 Previous Rx's Medication Instructions Recorded albuterol sulfate 90 mcg/actuation 1 puff inhalation Q4H PRN 03/09/23 aerosol inhaler (Ventolin HFA) shortness of breath or wheezing #8.5 grams losartan 50 mg-hydrochlorothiazide 1 tab PO QDAY #90 tabs 06/23/24 12.5 mg tablet liraglutide 0.6 mg/0.1 mL (18 mg/3 See Rx Instructions .Route 09/01/24 mL) subcutaneous pen injector .COMPLEX #9 mL (Victoza 3-King) cyclobenzaprine 10 mg tablet 10 mg PO TID PRN muscle spasm #30 09/02/24 tabs prednisone 20 mg tablet 20 mg PO TID #15 tabs 09/04/24 tramadol 50 mg tablet 50 mg PO Q6H PRN pain #14 tabs 09/04/24 Allergies Allergy/AdvReac Type Severity Reaction Status Date / Time contact metal agent Allergy Severe ALGY-Rash Verified 09/04/24 09:20 meperidine [From Demerol] Allergy Severe ALGY-Anaphy Verified 09/04/24 09:20 laxis methylprednisolone Allergy Intermediate ADR/ALGY-Pa Verified 09/04/24 09:20 [From Medrol] lpitations hydrocodone Allergy Unknown Verified 09/04/24 09:20 amoxicillin [From Augmentin] AdvReac Severe ADR-Vomitin Verified 09/04/24 09:20 g azithromycin AdvReac Severe ADR-Vomitin Verified 09/04/24 09:20 g clavulanic acid AdvReac Severe ADR-Vomitin Verified 09/04/24 09:20 [From Augmentin] g paroxetine [From Paxil] AdvReac Severe ADR-Anxiety Verified 09/04/24 09:20 Review of Systems Const: Denies: fever(s) or chills Card: Denies: chest pain Resp: Denies: dyspnea GI: Denies: abdominal pain : Denies: dysuria, urinary frequency or urinary urgency Musc: Reports: joint pain; Denies: neck pain or back pain Skin/Breast: Denies: rash PFSH ED PFSH: Medical History Breast cancer Garcia's palsy Bronchitis 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 Pain management contract signed Osteoarthritis Chronic foot pain Plantar fasciitis of right foot Right hip pain Severe persistent asthma with exacerbation Asthma Essential (primary) hypertension Hypothyroidism Surgical History History of bilateral mastectomy (05/08/23) Total mastectomy with axillary sentinel lymph node biopsy bilaterally History of hysterectomy with bilateral oophorectomy History of cholecystectomy H/O dilation and curettage H/O tubal ligation H/O hemorrhoidectomy Family History Father Stroke Mother Hypertension Cancer stomach and colon Grandfather Hypertension Grandmother Congestive heart failure (CHF) Stroke Diabetes Other Heart attack Hyperlipidemia Lung disease Denies family history of CAD (coronary artery disease) Clotting disorder Dementia Psychiatric illness Chronic kidney disease (CKD) Anesthesia complication Bleeding disorder Social History Smoking and tobacco/nicotine status: never used tobacco/nicotine Quit status (tobacco/nicotine): has quit using Year quit tobacco: 2012 - 0.5 PPD x 25 Years Alcohol intake: never Substance/Drug Use: never Lives independently: Yes Household members: spouse Marital status: Current occupational status: disabled Do you think of yourself as: Straight/Heterosexual Current gender identity: Female Physical Exam Const: COMMON NORMALS: no acute distress GENERAL APPEARANCE: cooperative and comfortable ORIENTATION/CONSCIOUSNESS: Yes awake HENMT: COMMON NORMALS: normocephalic, atraumatic and hearing grossly normal bilaterally HEAD & SCALP: normocephalic and atraumatic Resp: COMMON NORMALS: normal respiratory effort, No retractions, No use of accessory muscles and clear to auscultation bilaterally AUSCULTATION: clear to auscultation bilaterally Cardio: COMMON NORMALS: regular rate, regular rhythm and No murmurs present (Cardio) RATE: regular rate RHYTHM: regular rhythm Extremity: COMMON NORMALS: normal to inspection, capillary refill normal, no clubbing, cyanosis or edema, no calf tenderness and no pedal edema OTHER: Difficult to examine the right shoulder due to tenderness she has significant pain with any attempted internal/external rotation abduction or flexion. Neurovascularly the right arm is intact. Skin: COMMON NORMALS: no rashes or lesions noted GENERAL SKIN EXAM: no rashes or lesions noted Course Vital Signs: Vital signs: Vital Signs Temperature 98.3 F 09/04/24 09:16 Pulse Rate 75 09/04/24 11:01 Blood Pressure 115/70 09/04/24 11:01 Pulse Oximetry 95 09/04/24 11:01 Oxygen Delivery Me thod Room Air 09/04/24 11:00 MDM - Extremity (Nontraumatic) Medical Decision Making No acute findings on x-ray of the shoulder. At this point will discharge home with pain medications and steroids refer to orthopedics keep arm in the sling until she follows up in Ortho Medical Records I reviewed the patient's medical records. Lab Data I reviewed the patient's lab results. Radiology Impressions Shoulder X-Ray 09/04/24 09:34 IMPRESSION: Moderate to significant osteoarthritis of the acromioclavicular joint. Presumed mild osteoarthritis of the glenohumeral joint. Additional findings above suggest the possibility of significant rotator cuff tendinosis. All radiology interpretation(s) finalized by discharge Discharge Plan Discharge Patient Disposition: Home Clinical Impression: Bursitis of right shoulder Condition: Stable Prescriptions: New prednisone 20 mg tablet 20 mg PO TID Qty: 15 0RF Rx Instructions: 1 p.o. 3 times daily x3 days, 1 p.o. twice daily x2 days, 1 p.o. daily x2 days tramadol 50 mg tablet 50 mg PO Q6H PRN (Reason: pain) Qty: 14 0RF No Action celecoxib [Celebrex] 200 mg capsule 200 mg PO BID PRN (Reason: Pain) cyclobenzaprine 10 mg tablet 10 mg PO TID PRN (Reason: muscle spasm) Qty: 30 1RF albuterol sulfate [Ventolin HFA] 90 mcg/actuation HFA aerosol inhaler 1 puff INHALATION Q4H PRN (Reason: shortness of breath or wheezing) Qty: 8.5 5RF losartan-hydrochlorothiazide 50-12.5 mg tablet 1 tab PO QDAY Qty: 90 0RF Victoza 3-King 0.6 mg/0.1 mL (18 mg/3 mL) pen injector See Rx Instructions .ROUTE .COMPLEX Qty: 9 1RF Dose Instruction: inject 0.6mg SUBCUTANEOUSLY ONCE daily FOR SEVEN DAYS THEN 1.2mg daily *do not exceed 1.8mg PER day* Rx Instructions: inject 0.6mg SUBCUTANEOUSLY ONCE daily FOR SEVEN DAYS THEN 1.2mg daily *do not exceed 1.8mg PER day* levothyroxine 100 mcg tablet 100 mcg PO QAM alprazolam [Xanax] 0.25 mg tablet 0.25 mg PO BEDTIME citalopram 20 mg tablet 20 mg PO DAILY gabapentin 100 mg capsule 100 mg PO BEDTIME Discharge Orders: Discharge ED (Routine); Ordered 09/04/24 Ordered By: Rakesh Luu Referrals: Sanchez Brody MD [Primary Care Provider] - Discharge Diet: Usual diet Discharge Activity: Limit activity as instructed Patient Instructions: Opioid Safety, Pain Management Activity Restrictions/Additional Instructions: Thank you for choosing [facility] for your healthcare needs today. It is very important that you follow up as instructed or that you return to the Emergency Department should you have concerns or if your condition changes or worsens in any way. Case management make arrangements for you to follow-up for further evaluation and treatment options for your shoulder at the orthopedic clinic. Coding Level of Care Code ED Accounts Payable Analyst for [employer]
--- NOTE | 2024-09-04 10:57 | DCPLANNER ---
messaged ortho for er f/u
[2024-09-04 11:00] VITALS: BP 115/70; PULSE 75; O2SAT 95
[2024-09-04 11:01] VITALS: BP 115/70; PULSE 75; O2SAT 95
--- NOTE | 2024-09-04 11:01 | PC.NURSE ---
This nurse to bedside to DC pt. Pt educated on discharge instructions and medications. Pt wanted nurse to ask MD to change tramadol to hydrocodone, MD said no, pt told. Pt request to talk to MD. MD said he could not as he had other pt to see. Pt informed that MD was not able to come back and discuss dc again. Pt states that she was going to report MD. Pt ambulated out of ER in stable condition with all belongings.
== END 2024-09-04 11:01 | disposition home or self-care (01) ==
PROVIDERS: Emergency Provider Family Medicine; PCP Family Medicine
DX: M75.51 Bursitis of right shoulder (principal); Z87.891 Personal history of nicotine dependence; I10 Essential (primary) hypertension
CPT/HCPCS: 73030; 99283

== ENCOUNTER → 2024-12-01 14:16 | Outpatient (BNVA) | payer BC, SELFPAY | PROVIDERS: PCP Family Medicine; Visit Provider Internal Medicine | DX: E03.9 Hypothyroidism, unspecified (principal); E04.9 Nontoxic goiter, unspecified; E66.9 Obesity, unspecified; E03.8 Other specified hypothyroidism; E06.3 Autoimmune thyroiditis | CPT/HCPCS: 36415; 84439; 84443 ==

== ENCOUNTER → 2024-12-24 15:38 | Outpatient (BNVA) | payer BC, SELFPAY | PROVIDERS: PCP Family Medicine; Visit Provider Family Medicine | DX: M19.90 Unspecified osteoarthritis, unspecified site (principal); I10 Essential (primary) hypertension; E66.9 Obesity, unspecified | CPT/HCPCS: 80053; 80061; 83036; 85025 ==

== ENCOUNTER 2025-05-18 16:05 | Oncology outpatient (recurring) (ONCR) | payer MEDICARE, BC, SELFPAY ==
[2025-05-13 14:06] LABS: Hematocrit 42.9 % (36-47); Hemoglobin 14.10 g/dL (11.27-16.99); Mean Corpuscular HGB Conc 32.9 g/dL (30-55); Mean Corpuscular Hemoglobin 27.9 pg (27-33); Mean Corpuscular Volume 84.8 fl (85-98); Nucleated Red Blood Cells % 0 %; Platelet Count 247 10^3/cmm (157-399); Red Blood Count 5.06 10^6/uL (3.85-5.65); White Blood Count 6.89 10^3/uL (3.29-11.43)
[2025-05-13 14:45] LABS: Alanine Aminotransferase 22 U/L (0-33); Albumin Level 4.0 g/dL (3.5-5.2); Alkaline Phosphatase 59 U/L (35-105); Anion Gap 17.0 (5-19); Aspartate Amino Transferase 32 U/L (0-32); Blood Urea Nitrogen 9 mg/dL (8-23); Calcium 9.6 mg/dL (8.5-10.5); Carbon Dioxide 25 mmol/L (22-29); Chloride 100 mmol/L (98-107); Creatinine Clr Calc Pharmacy 73.6321; Globulin 3.7 g/dL (1.3-4.6); Glucose 103 mg/dL (65-115); Osmolality Calculated 287 mOsm/kg (285-295); Potassium 3.0 mmol/L (3.5-5.1); Sodium 139 mmol/L (136-145); Total Protein 7.7 g/dL (6.6-8.7)
--- NOTE | 2025-05-18 16:00 | MR_ITS ---
WS: [id number] EXAMINATION: MR hip RT wo/w con [id number] ORDER DATE: 05/18/2025 4:30 PM COMPARISON: None. HISTORY: right hip pain TECHNIQUE: Coronal STIR of the Pelvis. Coronal proton density, coronal T1, axial T2 fat sat, axial T1, sagittal T2 fat sat, and sagittal T1 performed of the hip. After contrast, axial T1 fat sat, coronal T1 fat sat, and sagittal T1 fat sat were performed. FINDINGS: Moderate degenerative arthritis RIGHT hip. Normal bone marrow signal. No significant joint effusion. No enhancing lesions in the RIGHT femoral head or neck. Normal bone marrow signal in the bony pelvis and sacrum. Normal bone marrow signal in the LEFT hip. No RIGHT inguinal lymphadenopathy. Small amount of fluid and edema about the RIGHT greater trochanter compatible with trochanteric bursitis. Visualized sacrum and coccyx appear normal. No enhancing lesions. MR/MR hip RT wo/w con [id number] IMPRESSION: 1. Trochanteric bursitis RIGHT hip. 2. No other acute findings.
[2025-05-18] MEDS: gadobenate dimeglumine 20 mL vial IV (16:45)
== END 2025-05-28 23:59 | disposition home or self-care (01) ==
LOC: ONCMED 16:05 → RAD 05-19 00:01 → ONCMED 05-26 12:46
PROVIDERS: PCP Family Medicine; Visit Provider Internal Medicine
DX: C50.812 Malignant neoplasm of overlapping sites of left female breast; M70.61 Trochanteric bursitis, right hip; M16.11 Unilateral primary osteoarthritis, right hip; Z53.9 Procedure and treatment not carried out, unspecified reason
CPT/HCPCS: 36415; 73723; 80053; 82306; 85025; 99213; A9577

== ENCOUNTER 2025-06-03 12:31 | Oncology outpatient (recurring) (ONCR) | payer MEDICARE, BC, SELFPAY ==
[2025-06-03 12:59] LABS: Hematocrit 43.5 % (36-47); Hemoglobin 14.00 g/dL (11.27-16.99); Mean Corpuscular HGB Conc 32.2 g/dL (30-55); Mean Corpuscular Hemoglobin 27.3 pg (27-33); Mean Corpuscular Volume 85.0 fl (85-98); Nucleated Red Blood Cells % 0 %; Platelet Count 262 10^3/cmm (157-399); Red Blood Count 5.12 10^6/uL (3.85-5.65); White Blood Count 7.22 10^3/uL (3.29-11.43)
[2025-06-03 13:26] LABS: Alanine Aminotransferase 19 U/L (0-33); Albumin Level 4.0 g/dL (3.5-5.2); Alkaline Phosphatase 66 U/L (35-105); Anion Gap 13.7 (5-19); Aspartate Amino Transferase 25 U/L (0-32); Blood Urea Nitrogen 8 mg/dL (8-23); Calcium 9.6 mg/dL (8.5-10.5); Carbon Dioxide 27 mmol/L (22-29); Chloride 101 mmol/L (98-107); Creatinine Clr Calc Pharmacy 74.2347; Free T4 Free Thyroxine 1.23 ng/dL (0.82-1.77); Globulin 3.8 g/dL (1.3-4.6); Glucose 96 mg/dL (65-115); Osmolality Calculated 284 mOsm/kg (285-295); Potassium 3.7 mmol/L (3.5-5.1); Sodium 138 mmol/L (136-145); Thyroid Stimulating Hormone 1.92 uIU/mL (0.27-4.20); Total Protein 7.8 g/dL (6.6-8.7)
== END 2025-06-28 23:59 | disposition home or self-care (01) ==
PROVIDERS: Nurse Practitioner; PCP Family Medicine; Visit Provider Internal Medicine
DX: C50.812 Malignant neoplasm of overlapping sites of left female breast (principal); E03.9 Hypothyroidism, unspecified; E04.9 Nontoxic goiter, unspecified; E03.8 Other specified hypothyroidism; E06.3 Autoimmune thyroiditis; M16.11 Unilateral primary osteoarthritis, right hip; G47.00 Insomnia, unspecified; Z87.891 Personal history of nicotine dependence; Z90.13 Acquired absence of bilateral breasts and nipples; Z79.891 Long term (current) use of opiate analgesic
CPT/HCPCS: 36415; 80053; 82306; 84439; 84443; 85025; 99214

== ENCOUNTER 2025-09-02 12:17 | Oncology outpatient (recurring) (ONCR) | payer MEDICARE, BC, SELFPAY ==
[2025-09-02 12:41] LABS: Hematocrit 40.5 % (36-47); Hemoglobin 13.20 g/dL (11.27-16.99); Mean Corpuscular HGB Conc 32.6 g/dL (30-55); Mean Corpuscular Hemoglobin 28.0 pg (27-33); Mean Corpuscular Volume 86.0 fl (85-98); Nucleated Red Blood Cells % 0 %; Platelet Count 236 10^3/cmm (157-399); Red Blood Count 4.71 10^6/uL (3.85-5.65); White Blood Count 6.12 10^3/uL (3.29-11.43)
[2025-09-02 13:00] LABS: Alanine Aminotransferase 18 U/L (0-33); Albumin Level 3.9 g/dL (3.5-5.2); Alkaline Phosphatase 59 U/L (35-105); Anion Gap 14.3 (5-19); Aspartate Amino Transferase 21 U/L (0-32); Blood Urea Nitrogen 8 mg/dL (8-23); Calcium 9.0 mg/dL (8.5-10.5); Carbon Dioxide 27 mmol/L (22-29); Chloride 101 mmol/L (98-107); Globulin 3.4 g/dL (1.3-4.6); Glucose 120 mg/dL (65-115); Osmolality Calculated 288 mOsm/kg (285-295); Potassium 3.3 mmol/L (3.5-5.1); Sodium 139 mmol/L (136-145); Total Protein 7.3 g/dL (6.6-8.7)
== END 2025-09-27 23:59 | disposition home or self-care (01) ==
PROVIDERS: Nurse Practitioner; PCP Family Medicine; Visit Provider Internal Medicine
DX: C50.919 Malignant neoplasm of unspecified site of unspecified female breast (principal); M81.0 Age-related osteoporosis without current pathological fracture; Z08 Encounter for follow-up examination after completed treatment for malignant neoplasm; Z85.3 Personal history of malignant neoplasm of breast; M25.552 Pain in left hip; M25.551 Pain in right hip; E55.9 Vitamin D deficiency, unspecified; G47.00 Insomnia, unspecified; Z90.13 Acquired absence of bilateral breasts and nipples; Z79.899 Other long term (current) drug therapy
CPT/HCPCS: 36415; 80053; 82306; 85025

== ENCOUNTER → 2025-09-02 13:30 | Outpatient (BNVA) | payer MEDICARE, BC, SELFPAY | PROVIDERS: PCP Family Medicine; Visit Provider Internal Medicine | DX: Z08 Encounter for follow-up examination after completed treatment for malignant neoplasm (principal); Z85.3 Personal history of malignant neoplasm of breast; M81.0 Age-related osteoporosis without current pathological fracture; M25.552 Pain in left hip; M25.551 Pain in right hip; E55.9 Vitamin D deficiency, unspecified; G47.00 Insomnia, unspecified; Z90.13 Acquired absence of bilateral breasts and nipples; Z79.899 Other long term (current) drug therapy | CPT/HCPCS: 99213; J3301; J9999 ==

== ENCOUNTER → 2025-09-19 15:47 | Outpatient (BNVA) | payer MEDICARE, BC, SELFPAY | PROVIDERS: PCP Family Medicine; Visit Provider Emergency Medicine | DX: J98.4 Other disorders of lung (principal); R06.2 Wheezing; Z98.890 Other specified postprocedural states | CPT/HCPCS: 71046 ==